=== PATIENT | female | born 1945 | race Caucasian/White ===

== ENCOUNTER 2018-02-01 14:05 | Outpatient (CLI) | payer MEDICARE | END 2018-02-01 14:06 | disposition home or self-care (01) | LOC: BICMAMMO 14:05 | PROVIDERS: ATTEND Internal Medicine | DX: N63.20 Unspecified lump in the left breast, unspecified quadrant (principal) | CPT/HCPCS: 76642; 77066; G0279 ==

== ENCOUNTER 2018-07-11 05:11 | Emergency (ER) | payer MEDICARE ==
[2018-07-11] MEDS ORDERED: HYDROcodone/Acetaminophen 10/325 mg Tablet ONE (06:47)
[2018-07-11] MEDS ORDERED: Ketorolac Tromethamine 30 MG/ML VIAL ONE (06:47)
--- NOTE | 2018-07-11 07:58 | ULT ---
DOPPLER VENOUS ULTRASOUND OF RIGHT LOWER EXTREMITY: Date: 07/11/18 INDICATION: Right leg pain with positive D-Dimer. TECHNIQUE: Parker scale, color Doppler, and vascular duplex with spectral analysis was performed of the deep venou s structures of the right lower extremity. The common femoral vein, superficial femoral vein, proxima l greater saphenous vein, proximal greater profunda vein, popliteal, and posterior tibial veins were assessed. FINDINGS: Normal compression, flow, and augmentation was seen within the deep venous structures on the right lo wer extremity. IMPRESSION: No evidence of deep venous thrombosis within the right lower extremity. POS: [facility]
== END 2018-07-11 07:55 | disposition home or self-care (01) ==
LOC: ERS 05:11
DX: M25.561 Pain in right knee (principal); I10 Essential (primary) hypertension; N28.9 Disorder of kidney and ureter, unspecified; E11.9 Type 2 diabetes mellitus without complications; E66.9 Obesity, unspecified; J45.909 Unspecified asthma, uncomplicated; J42 Unspecified chronic bronchitis; Z79.4 Long term (current) use of insulin; Z79.899 Other long term (current) drug therapy
CPT/HCPCS: 96374; J1885